=== PATIENT | female | born 1950 | race Caucasian/White ===

== ENCOUNTER → 2017-07-01 | Outpatient (CLI) | payer BC, MEDICARE ==
--- NOTE | 2017-07-02 10:54 | MM ---
Reason for exam: screening (asymptomatic). Last mammogram was performed 6 years and 4 months ago. History: Patient is postmenopausal and is nulliparous. Family history of premenopausal breast cancer in sister at age 50 and breast cancer in sister at age 64. Physical Findings: A clinical breast exam by your physician is recommended on an annual basis and results should be correlated with mammographic findings. MG 3D Screening Mammo W/Cad Bilateral CC and MLO view(s) were taken. Prior study comparison: February 27, 2011, bilateral digital screening mammo w/CAD. February 26, 2010, bilateral digital screening mammogram. The breast tissue is heterogeneously dense. This may lower the sensitivity of mammography. Finding: There are typically benign round calcifications in both breasts. There is a chronic nodularity in the right axilla. There is no discrete abnormality. ASSESSMENT: Benign, BI-RAD 2 RECOMMENDATION: Routine screening mammogram of both breasts in 1 year.
== END | disposition home or self-care (01) ==
LOC: RADMAMWWP 13:25
PROVIDERS: ATTEND Family Medicine
DX: Z12.31 Encounter for screening mammogram for malignant neoplasm of breast (principal)
CPT/HCPCS: 77063; 77067

== ENCOUNTER → 2019-06-30 | Outpatient (CLI) | payer OTHER, MEDICARE | END | disposition home or self-care (01) | LOC: RADMRIMAIN 14:25 | PROVIDERS: ATTEND Family Medicine | DX: Z53.9 Procedure and treatment not carried out, unspecified reason (principal) ==

== ENCOUNTER 2020-09-08 11:01 | Day surgery (SDC) | payer MEDICARE ==
[2020-09-06 10:47] VITALS: BMI 20.9
[~2020-09-08 11:01] MED LIST: LACTATED RINGERS 1,000 ML IV SCH; LIDOCAINE 1% (10MG/ML) FOR IV START INTRADERMA PRN
[2020-09-08 11:29] VITALS: TEMP 97
[2020-09-08] MEDS ORDERED: PROPOFOL 10 MG/ML 20 ML VIAL IV ONE (12:01)
--- NOTE | 2020-09-08 12:18 | P.PCN ---
Date of Procedure: 09/08/20 Procedure(s) Performed: BRIEF HISTORY: Patient is a 70-year-old pleasant female scheduled for an elective colonoscopy as a part of screening for colorectal neoplasia. PROCEDURE PERFORMED: Colonoscopy with random biopsy. PREOPERATIVE DIAGNOSIS: Screening for colon cancer. IV sedation per Anesthesia. PROCEDURE: After informed consent was obtained, the patient, was brought into the endoscopy unit. IV sedation was administered by Anesthesia under continuous monitoring. Digital rectal examination was normal. Initially the Olympus CF-160 flexible video colonoscope was then inserted in the rectum, gradually advanced into the cecum without any difficulty. Careful examination was performed as the scope was gradually being withdrawn. Ileocecal valve and the appendiceal orifice were visualized and appeared normal. Prep was excellent. Terminal ileum was intubated and approximately 20 cm visualized which reveals scattered erosions and biopsies were done from this area. Mucosa of the cecum, ascending colon, transverse colon, descending colon, sigmoid colon, and rectum had scattered erosions with normal-appearing intervening mucosa which was more predominant in the sigmoid colon. Multiple random biopsies done throughout the colon. Retroflexion was performed in the rectum and no lesions were seen. The patient tolerated the procedure well. IMPRESSION: Scattered erosions the terminal ileum status post biopsy Scattered areas of erythema noted throughout the entire colon with normal ap pearing intervening mucosa, status post multiple biopsies to rule out inflammatory bowel RECOMMENDATIONS: Findings of this examination were discussed with the patient as well as a family. She was advised to follow with the biopsy results. If the biopsy shows any evidence of colitis she will follow up in office for further management..
[2020-09-08 12:29] VITALS: BP 117/70; PULSE 65; RESP 16
== END 2020-09-08 13:14 | disposition home or self-care (01) ==
LOC: ORWHC2ENDO 11:01
PROVIDERS: ATTEND Internal Medicine Gastroenterology
DX: Z12.11 Encounter for screening for malignant neoplasm of colon (principal); K52.9 Noninfective gastroenteritis and colitis, unspecified; K62.89 Other specified diseases of anus and rectum; K63.3 Ulcer of intestine
CPT/HCPCS: 88305; 45380; J2704

== ENCOUNTER → 2021-08-27 | Outpatient (CLI) | payer MEDICARE ==
--- NOTE | 2021-08-28 09:09 | MM ---
Reason for exam: screening (asymptomatic). Last mammogram was performed 4 years and 2 months ago. History: Patient is postmenopausal and is nulliparous. Family history of premenopausal breast cancer in sister at age 50 and breast cancer in sister at age 64. Physical Findings: A clinical breast exam by your physician is recommended on an annual basis and results should be correlated with mammographic findings. MG 3D Screening Mammo W/Cad Bilateral CC, MLO, and XCCL view(s) were taken. Prior study comparison: July 01, 2017, bilateral MG 3d screening mammo w/cad. The breast tissue is heterogeneously dense. This may lower the sensitivity of mammography. MLO's limited as patient is severly kyphotic. No significant changes when compared with prior studies. ASSESSMENT: Benign, BI-RAD 2 RECOMMENDATION: Routine screening mammogram of both breasts in 1 year. Patient should continue monthly self breast exams. A negative report should not preclude additional follow up of suspicious palpable abnormalities.
== END | disposition home or self-care (01) ==
LOC: RADMAMWWP 09:09
PROVIDERS: ATTEND Family Medicine
DX: Z12.31 Encounter for screening mammogram for malignant neoplasm of breast (principal)
CPT/HCPCS: 77063; 77067

== ENCOUNTER → 2022-11-07 | Outpatient (CLI) | payer MEDICARE ==
[2022-11-07 10:50] LABS: African American GFR (CKD) >90 (>60 ml/min/1.73 sqM); Blood Urea Nitrogen 20 mg/dL (7-17); Non-African American GFR(CKD) >90 (>60 ml/min/1.73 sqM)
--- NOTE | 2022-11-07 16:48 | CT ---
EXAMINATION TYPE: CT urogram wo/w con CT DLP: 1170.50 mGycm, Automated exposure control for dose reduction was used. DATE OF EXAM: 11/07/2022 1:37 PM COMPARISON: None CLINICAL INDICATION:Female, 72 years old with history of R31.9 hematuria; PHH, gross hematuria TECHNIQUE: Urogram of the abdomen and pelvis was performed before and after the administration of 85 cc of IV co ntrast Isovue 300 contrast. Delayed imaging was performed. Coronal and sagittal reformats were perfor med. One or more CT dose reduction strategies were utilized during this examination. 2D and 3D recons tructions are performed to assist visualization of the urinary tract on a separate workstation. FINDINGS: GENITOURINARY: RIGHT KIDNEY AND URETER: No calculi. No hydronephrosis or hydroureter. Subcentimeter hypodense focus within the mid right kidney which is too small characterize but likely represents a cyst. No urotheli al lesions: no filling defect, dilation, stricture or wall thickening. LEFT KIDNEY AND URETER: No calculi. No hydronephrosis or hydroureter. No renal mass or other lesions. No urothelial lesions: no filling defect, dilation, stricture or wall thickening. URINARY BLADDER: Not optimally distended. No gross evidence of calculi, mass, or other lesions. REPRODUCTIVE: Post hysterectomy. ABDOMEN LIVER: Unremarkable. GALLBLADDER AND BILE DUCTS: Unremarkable PANCREAS: Unremarkable. SPLEEN: Unremarkable. ADRENAL GLANDS: Unremarkable. STOMACH AND BOWEL: No focal bowel wall thickening or surrounding inflammatory changes.. No evidence o f bowel obstruction. PERITONEUM: No evidence of pneumoperitoneum, free fluid, or adenopathy. VASCULATURE: No aortic aneurysm. Retroaortic left renal vein. MUSCULOSKELETAL: No acute osseous abnormalities. Diffuse bone demineralization. Chronic appearing ant erior wedge compression deformity of the T11 and L1 vertebral bodies with approximately 50% height lo ss. There is mild retropulsion of 2 mm for each compression deformity. SOFT TISSUE/ABDOMINAL WALL: Unremarkable. LOWER CHEST: Mild emphysematous changes. Coronary arterial calcifications.. IMPRESSION: 1. No evidence of urolithiasis or suspicious renal/urothelial neoplasm. Subcentimeter hypodense focus within the mid right kidney which is too small to characterize but does not enhance and is favored t o represent a cyst. 2. Chronic appearing anterior wedge compression deformities of the T11 and L1 vertebral bodies.
== END | disposition home or self-care (01) ==
LOC: RADCTMAIN 10:07
PROVIDERS: ATTEND Family Medicine
DX: M48.54XA Collapsed vertebra, not elsewhere classified, thoracic region, initial encounter for fracture (principal); R31.9 Hematuria, unspecified
CPT/HCPCS: 82565; 84520; 74178; 36415; 74400; Q9967

== ENCOUNTER → 2022-11-19 | Outpatient (CLI) | payer MEDICARE ==
--- NOTE | 2022-11-19 10:34 | XR ---
EXAMINATION TYPE: XR shoulder complete LT DATE OF EXAM: 11/19/2022 CLINICAL HISTORY: Injury with pain TECHNIQUE: Three views of the left shoulder are obtained. COMPARISON: None. FINDINGS: There is acute comminuted displaced fracture through the surgical neck of the left proxima l humerus. There is 3.9 a 1.3 cm cm fracture fragment involving the greater tuberosity. No glenohume ral joint dislocation. [id number] narrowing at the acromioclavicular joint. The visualized ribs are intact and unremarkable. IMPRESSION: As above. Results communicated to ordering physician physical therapy assistant instructor via telephone by x-ray technologist at time of d ictation.
== END | disposition home or self-care (01) ==
LOC: RADXRMAIN 09:40
PROVIDERS: ATTEND Nurse Practitioner Family
DX: S49.92XA Unspecified injury of left shoulder and upper arm, initial encounter (principal); X58.XXXA Exposure to other specified factors, initial encounter

== ENCOUNTER → 2022-11-25 | Outpatient (CLI) | payer MEDICARE ==
--- NOTE | 2022-11-25 10:56 | CT ---
EXAMINATION TYPE: CT shoulder LT wo con DATE OF EXAM: 11/25/2022 COMPARISON: 11/19/2022 HISTORY: fall with pain CT DLP: 216.7 mGycm Automated exposure control for dose reduction was used. FINDINGS: There is a comminuted fracture involving the humeral neck extending into the greater tuberosity. Agustina cent soft tissue edema. Visualized lung zepeda clear. 2 mm subpleural nodule left upper lobe axial image 67 has a benign appe arance. Diffuse osteopenia. Hypertrophic mild AC joint arthropathy. Visualized rib cage intact. IMPRESSION: DISPLACED SELLA LEFT HUMERAL NECK FRACTURE EXTENDING INTO THE GREATER TUBEROSITY.
== END | disposition home or self-care (01) ==
LOC: RADCTMAIN 09:53
PROVIDERS: ATTEND Orthopaedic Surgery
DX: S42.252A Displaced fracture of greater tuberosity of left humerus, initial encounter for closed fracture (principal)